=== PATIENT | female | born 1980 | race Two or more races ===

== ENCOUNTER 2024-05-14 02:38 | Emergency (ER) | payer MEDICAID ==
[~2024-05-14] VITALS: Ht 172.7 cm; Wt 87.0 kg
[2024-05-14 02:43] VITALS: O2SAT 99
[2024-05-14] MEDS ORDERED: NAPR-681 MT (08:15)
[2024-05-14 09:40] VITALS: BP 155/86; PULSE 88; RESP 14; TEMP 37.1; O2SAT 99
[2024-05-14] MEDS: ONDANSETRON HCL 4MG/2ML INJ IV STA (09:43)
[2024-05-14] MEDS: MORPHINE SULFATE 4 MG/ML INJ (FOR IV/IM USE) IV STA (09:43)
== END 2024-05-14 09:44 | disposition home or self-care (01) ==
LOC: ER 02:38
DX: S93.402A Sprain of unspecified ligament of left ankle, initial encounter (principal); I10 Essential (primary) hypertension; F41.9 Anxiety disorder, unspecified; X50.1XXA Overexertion from prolonged static or awkward postures, initial encounter; Y93.01 Activity, walking, marching and hiking; Y92.89 Other specified places as the place of occurrence of the external cause; Y99.8 Other external cause status
CPT/HCPCS: 73590; 73600; 99284

== ENCOUNTER 2024-07-27 03:35 | Emergency (ER) | payer BC, MEDICAID ==
[~2024-07-27] VITALS: Ht 167.6 cm; Wt 87.0 kg
[~2024-07-27 03:35] MED LIST: NAPR-681 MT
[2024-07-27 03:37] VITALS: BP 182/108; PULSE 91; RESP 20; TEMP 36.7; O2SAT 98
[2024-07-27 05:28] LABS: EOSINOPHILS % 0.5 % (0.0-5.0); HEMATOCRIT. 43.5 % (36.0-48.0); HEMOGLOBIN. 14.1 g/dL (12.0-16.0); LYMPHOCYTES % 19.5 % (20.0-50.0); MEAN CORPUSCULAR HGB CONC 32.5 g/dL (31.0-37.0); MEAN CORPUSCULAR VOLUME 95.3 fL (81.0-99.0); MEAN PLATELET VOLUME 8.4 fl (7.4-10.4); MONOCYTES % 7.7 % (2.0-8.0); NEUTROPHILS % 71.3 % (40.0-76.0); PLATELET 245 x1000/uL (130-400); RED BLOOD CELL COUNT 4.56 mill/uL (4.2-5.4); RED CELL DISTRIBUTION WIDTH 15.8 % (11.6-14.6); WHITE BLOOD COUNT 4.8 x1000/uL (4.5-11.0)
[2024-07-27 05:37] LABS: CHLORIDE 105 mEq/L (98-107); POTASSIUM 3.4 mEq/L (3.5-5.1); SODIUM 139 mEq/L (136-145)
[2024-07-27 05:38] LABS: CALCIUM 9.1 mg/dL (8.7-10.4); CARBON DIOXIDE 22 mEq/L (21-32)
[2024-07-27 05:43] LABS: CREATININE 0.8 mg/dL (0.6-1.0); GLUCOSE 123 mg/dL (70-105); UREA NITROGEN BLOOD 6 mg/dL (9-23)
[2024-07-27] MEDS: LORAZEPAM 1MG TABLET PO ONE (05:52)
== END 2024-07-27 08:53 | disposition left against medical advice (07) ==
LOC: ER 03:35
DX: F41.9 Anxiety disorder, unspecified (principal); I10 Essential (primary) hypertension; J45.909 Unspecified asthma, uncomplicated; Z79.1 Long term (current) use of non-steroidal anti-inflammatories (NSAID); Z79.899 Other long term (current) drug therapy
CPT/HCPCS: 36415; 80048; 85025; 99283

== ENCOUNTER 2025-01-23 01:42 | Emergency (ER) | payer BC, MEDICAID ==
[~2025-01-23] VITALS: Ht 160 cm; Wt 59.0 kg
[2025-01-23 01:51] VITALS: O2SAT 99
[2025-01-23] MEDS: HYDROCODONE/ACETAMINOPHEN 5/325MG TABLET PO ONE (03:02)
[2025-01-23] MEDS: KETOROLAC 30MG/ML VIAL IM ONE (04:53)
[2025-01-23] MEDS ORDERED: IBUP-1455 MT (04:59)
[2025-01-23] MEDS ORDERED: HYDR-4001 MT (05:00)
[2025-01-23 05:08] VITALS: BP 131/94; PULSE 100; RESP 19; TEMP 36.9; O2SAT 100
== END 2025-01-23 05:16 | disposition home or self-care (01) ==
LOC: ER 01:42
DX: S40.022A Contusion of left upper arm, initial encounter (principal); S80.12XA Contusion of left lower leg, initial encounter; I10 Essential (primary) hypertension; J45.909 Unspecified asthma, uncomplicated; F41.9 Anxiety disorder, unspecified; X58.XXXA Exposure to other specified factors, initial encounter; Y93.89 Activity, other specified; Y92.89 Other specified places as the place of occurrence of the external cause; Y99.8 Other external cause status
CPT/HCPCS: 99284; 81025; 73502; 73551; 73090; 96372; J1885